=== PATIENT | female | born 1935 | race Hispanic/Latino ===

== ENCOUNTER 2018-11-20 06:42 | Day surgery (SDC) | payer MEDICARE, OTHER ==
[~2018-11-20 06:42] MED LIST: ANCEF/STERILE WATER 2 GM/20 ML 2 GM/20 ML SYRINGE IV NR; NACL 0.9% 1000 ML 1,000 ML IV SCH
[2018-11-20 07:47] LABS: Basophils # (Auto) 0.1 K/mm3 (0.0-0.1); Basophils % (Auto) 0.8 % (0.0-1.8); Eosinophils # (Auto) 0.2 K/mm3 (0.0-0.4); Eosinophils % (Auto) 1.8 % (0.0-4.3); Hematocrit 33.7 % (30.3-42.9); Hemoglobin 11.1 gm/dl (10.1-14.3); Lymphocytes % (Auto) 26.8 % (13.4-35.0); Mean Corpuscular HGB Conc 33 % (30-34); Mean Corpuscular Volume 98 fl (79-97); Monocytes # (Auto) 0.7 K/mm3 (0.0-0.8); Monocytes % (Auto) 6.5 % (0.0-7.3); Platelet Count 234 K/mm3 (140-440); Red Blood Count 3.45 M/mm3 (3.65-5.03); Red Cell Distribution Width 15.7 % (13.2-15.2)
[2018-11-20 07:48] LABS: Calcium 8.8 mg/dL (8.4-10.2)
[2018-11-20] MEDS ORDERED: SUBLIMAZE IV PRN (09:30)
[2018-11-20] MEDS ORDERED: ZOFRAN IV PRN (09:30)
[2018-11-20] MEDS ORDERED: DILAUDID IV PRN (09:30)
[2018-11-20] MEDS ORDERED: NARCAN 0.4 MG/1 ML IV PRN (09:30)
[2018-11-20] MEDS ORDERED: XYLOCAINE CARDIAC IV ONE (09:33)
[2018-11-20] MEDS ORDERED: SUBLIMAZE ONE ×2 (09:33→11:25)
[2018-11-20] MEDS ORDERED: DIPRIVAN 10 MG/ML IV ONE (09:34)
[2018-11-20] MEDS ORDERED: HEPARIN 10,000 UNITS/10 ML ONE (09:51)
[2018-11-20] MEDS ORDERED: NACL 0.9% 500 ML 500 ML ONE (09:51)
[2018-11-20] MEDS ORDERED: NITROGLYCERIN SYRINGE 3 ML ONE (09:52)
[2018-11-20] MEDS ORDERED: THROMBIN (BOVINE) TP ONE ×2 (09:52→11:01)
[2018-11-20] MEDS ORDERED: GELFOAM TP ONE ×2 (09:52→11:00)
[2018-11-20] MEDS ORDERED: MARCAINE-EPI 0.5%-1:200,000 INFILTRATI ONE ×2 (09:53→11:01)
[2018-11-20] MEDS ORDERED: HEPARIN 10,000 UNITS/10 ML IV ONE (10:59)
[2018-11-20] MEDS ORDERED: NACL 0.9% IR ONE ×2 (11:00)
[2018-11-20] MEDS ORDERED: NITROGLYCERIN SYRINGE UD ONE (11:01)
[2018-11-20] MEDS ORDERED: NEO SYNEPHRINE/NS Syringe(OR USE) IV ONE (11:08)
[2018-11-20] MEDS ORDERED: ZOFRAN ONE (11:37)
--- NOTE | 2018-11-20 11:47 | Short Stay Summary ---
Short Stay Documentation Date of service: 11/20/18 - History H&P: obtained from office - Allergies and Medications Current Medications: Allergies No Known Allergies Allergy (Verified 11/19/18 17:33) Home Medications Medication Instructions Recorded Confirmed Last Taken Type Atorvastatin (Nf) [Lipitor] 1 tab PO DAILY 12/15/13 07/21/15 11/19/18 History Cholecalciferol (Vitamin D3) 1 cap PO DAILY 12/15/13 07/21/15 11/19/18 History [Vitamin D3 2,000 UNIT CAP] Levothyroxine [Synthroid] 100 mcg PO DAILY 12/15/13 07/21/15 11/19/18 History Montelukast Sodium [Singulair] 10 mg PO DAILY 12/15/13 07/21/15 11/19/18 History Allopurinol [Zyloprim] 100 mg PO QDAY 06/18/15 07/21/15 11/19/18 History Brinzolamide [Azopt 1%] 1 drop OU BID 06/18/15 07/21/15 11/19/18 History Dabigatran [Pradaxa] 150 mg PO BID #60 capsule 06/23/15 07/21/15 11/19/18 Rx Torsemide [Demadex] 20 mg PO Q48HR #30 06/23/15 07/21/15 11/19/18 Rx glipiZIDE [Glucotrol] 5 mg PO QDAY #90 tablet 06/23/15 07/21/15 11/19/18 Rx predniSONE [Deltasone] 30 mg PO QDAY #30 06/23/15 07/21/15 07/21/15 Rx levoFLOXacin [Levaquin TAB] 250 mg PO QDAY #4 tablet 07/24/15 Unknown Rx oxyCODONE /ACETAMINOPHEN [Percocet 1 tab PO Q6HR PRN #15 tablet 07/24/15 Unknown Rx 5/325] Gabapentin [Neurontin] 100 mg PO DAILY 11/20/18 11/20/18 11/18/18 History Hydralazine HCl 50 mg PO BID 11/20/18 11/20/18 11/20/18 History Kalexate packet PO 2XW 11/20/18 11/18/18 History Lisinopril [Zestril TAB] 5 mg PO DAILY 11/20/18 11/20/1811/20/19 History Active Medications Fentanyl (Sublimaze) 50 mcg IV Q5MIN PRN PRN Reason: Pain , Severe (7-10) Stop: 11/20/18 16:00 Hydromorphone HCl (Dilaudid) 0.5 mg IV Q10MIN PRN PRN Reason: Pain , Severe (7-10) Stop: 11/20/18 16:00 Cefazolin Sodium (Ancef/Sterile Water 2 Gm/20 Ml) 2 gm in 20 mls @ 80 mls/hr IV PREOP NR; Protocol Stop: 11/20/18 18:00 Sodium Chloride (Nacl 0.9% 1000 Ml) 1,000 mls @ 42 mls/hr IV DIRECT SHUB[place]AM Naloxone HCl (Narcan 0.4 Mg/1 Ml) 0.1 mg IV Q2MIN PRN PRN Reason: Res Rate </= 8 or 02 SAT < 92% Ondansetron HCl (Zofran) 4 mg IV ONCE PRN PRN Reason: Nausea And Vomiting Stop: 11/20/18 16:00 - Brief post op/procedure progress note Date of procedure: 11/20/18 Pre-op diagnosis: end-stage renal disease Post-op diagnosis: same Anesthesia: GETA, local Findings: Good thrill in fistula and procedure. Good left radial pulse at the end of procedure. Surgeon: HEIDY RUSSO Estimated blood loss: minimal Condition: stable - Hospital course Hospital course: Benign - Disposition Condition at discharge: Good Disposition: [id number] TO HOME OR SELFCARE Short Stay Discharge Plan Activity: advance as tolerated Diet: advance as tolerated Wound: per your surgeon's advice Follow up with: HEIDY RUSSO MD [Staff Physician] - 14 Days Prescriptions: HYDROcodone/APAP 5-325 [[place] 5/325] 1 each PO Q6HR PRN #20 tablet PRN Reason: Pain
--- NOTE | 2018-11-20 11:49 | Operative Report ---
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 The patient presents for establishment of long-term hemodialysis access. Findings: Excellent thrill in the arteriovenous fistula at the end of the procedure. Easily palpable radial pulse distal to the anastomosis. Procedure: The patient was placed on the table in the supine position. The left arm was prepped with ChloraPrep solution and draped in the usual sterile fashion. The ultrasound was used to identify the cephalic vein after a tourniquet had been placed in the upper arm using a rubber glove. The vein appeared to be of adequate caliber and no thrombus was noted. The vein was actually good all around the wrist. However, the radial artery was too small to use that for dist ally. Under local anesthesia, an incision was made just below the elbow. Dissection was carried out to identify the cephalic vein. The vein was actually quite large. Dissection was also carried out to identify the brachial artery. The vein was dissected from the surrounding tissue to provide enough length to reach the artery. A branch point of the vein was spatulated for the anastomosis. Nit roglycerin was instilled into the vein to dwell while the anastomosis was created. An arteriotomy was made in the artery. Nitroglycerin was instilled into the proximal portion of the artery as well. An end-to-side anastomosis was created using running 7-0 Prolene. A #2 [place] catheter was used to make sure all vessels were patent. The anastomosis was completed and flow started into the fistula. There was a strong thrill up the arm. Hemostasis was obtained. The wound was infiltrated with half percent Marcaine and epinephrine. Closure was done with 3-0 Vicryl and 4-0 subcuticular PDS. Dermabond was placed. The patient tolerated the procedure well. There was an easily palpable left radial pulse at the end of the procedure. There was a good thrill in the fistula at the end of the procedure. Sponge, needle, and instrument counts were reported as correct.
[2018-11-20 12:53] VITALS: BP 136/40
--- NOTE | 2018-11-21 09:21 | Post Anesthesia Evaluation ---
- Post Anesthesia Evaluation Patient Participated: Yes Airway Patent: Yes Stable Respiratory Function: Yes Nausea/Vomiting: No Temp > 96.8F: Yes Pain Manageable: Yes Adequeate Hydration: Yes Anesthesia Complications: No
--- NOTE | 2018-11-21 09:21 | Anesthesia Consultation ---
Anesthesia Consult and Med Hx Date of service: 11/20/18 - Airway Anesthetic Teeth Evaluation: Dentures ROM Head & Neck: Adequate Mental/Hyoid Distance: Adequate Mallampati Class: Class II Intubation Access Assessment: Good - Pulmonary Exam CTA: Yes - Cardiac Exam Cardiac Exam: RRR - Pre-Operative Health Status ASA Pre-Surgery Classification: ASA3 Proposed Anesthetic Plan: General - Pulmonary Hx Smoking: No Hx Asthma: Yes (Not treated) COPD: No Hx Sleep Apnea: Yes - Cardiovascular System Hx Hypertension: Yes Hx Peripheral Vascular Disease: Yes - Central Nervous System Hx Seizures: No Hx Back Pain: Yes Hx Psychiatric Problems: No - Endocrine Hx Renal Disease: Yes (Stage 4, has not started dialysis yet) Hx Thyroid Disease: No Hx Hypothyroidism: Yes - Other Systems Hx Cancer: No
== END 2018-11-20 13:50 | disposition home or self-care (01) ==
LOC: OR 06:42
PROVIDERS: ATTEND Surgery Vascular Surgery
DX: I13.2 Hypertensive heart and chronic kidney disease with heart failure and with stage 5 chronic kidney disease, or end stage renal disease (principal); E11.22 Type 2 diabetes mellitus with diabetic chronic kidney disease; I50.9 Heart failure, unspecified; N18.6 End stage renal disease; D72.829 Elevated white blood cell count, unspecified; G47.33 Obstructive sleep apnea (adult) (pediatric); E66.01 Morbid (severe) obesity due to excess calories; E11.39 Type 2 diabetes mellitus with other diabetic ophthalmic complication; E11.51 Type 2 diabetes mellitus with diabetic peripheral angiopathy without gangrene; E78.00 Pure hypercholesterolemia, unspecified; J45.909 Unspecified asthma, uncomplicated; M19.90 Unspecified osteoarthritis, unspecified site; E03.9 Hypothyroidism, unspecified; Z79.899 Other long term (current) drug therapy; Z86.711 Personal history of pulmonary embolism; Z68.43 Body mass index [BMI] 50.0-59.9, adult; Z87.440 Personal history of urinary (tract) infections; Z90.49 Acquired absence of other specified parts of digestive tract; Z90.710 Acquired absence of both cervix and uterus; Z98.890 Other specified postprocedural states; Z86.2 Personal history of diseases of the blood and blood-forming organs and certain disorders involving the immune mechanism
CPT/HCPCS: 36415; 36821; 80048; 82962; 85025; A4649; C1757; J0690; J1644; J2001; J2370; J2405; J2704; J3010; J7030; J7040